=== PATIENT | male | born 1960 | race Caucasian/White ===

== ENCOUNTER 2024-07-02 11:23 | Emergency (ER) | payer OTHER, SELFPAY ==
--- NOTE | 2024-07-02 11:26 | ECG_ITS ---
[facility] Test Date: 2024-07-02 Pat Name: Paulino Guerrero Department: Room: Gender: Male Forms Builder: : 1960 Requested By: Melanie Ivan Order Number: [id number] Stef MD: Lauro Chatman M.D. Measurements Intervals [place] Rate: 64 P: 63 CO: 202 QRS: 42 QRSD: 81 T: 64 QT: 311 QTc: 323 Interpretive Statements SINUS RHYTHM NONSPECIFIC T-WAVE ABNORMALITY No previous ECG available for comparison Electronically Signed On 07-05-2024 19:15:39 CDT by Lauro Chatman M.D. [id number]
[2024-07-02 11:31] VITALS: BP 138/87; PULSE 68; RESP 17; TEMP 36.6; O2SAT 96; BMI 33.5
--- NOTE | 2024-07-02 11:31 | XRR_ITS ---
PROCEDURE INFORMATION: Exam: XR Chest Exam date and time: 07/02/2024 12:05 PM Age: 63 years old Clinical indication: Pain; Angina pectoris; Additional info: Cp TECHNIQUE: Imaging protocol: Radiologic exam of the chest. Views: 1 view. COMPARISON: No relevant prior studies available. FINDINGS: Lungs: Unremarkable. No consolidation. Pleural spaces: Blunting of the left costophrenic angle. Heart/Mediastinum: Unremarkable. No cardiomegaly. Bones/joints: Unremarkable. XR/XR chest 1V portable [id number] IMPRESSION: Blunting of the left costophrenic angle. Could be related to artifact from superimposition, atelectasis, or a small left pleural effusion.
[2024-07-02 11:33] VITALS: BP 134/77; PULSE 62; RESP 14; O2SAT 94
--- NOTE | 2024-07-02 12:07 | W.ED.CHESTPA ---
HPI - Chest Pain General: Chief Complaint: Chest Pain Stated Complaint: chest pain Time Seen by Provider: 07/02/24 11:55 History of Present Illness: 63-year-old male presents to the emergency room with episode of chest pain intermittently this morning. He still has some mild chest discomfort on arrival here is no acute EKG changes no associated nausea vomiting or diarrhea he has not noticed anything exacerbates or relieves it. He does have some associated back pain but he states it is typical of his chronic lower lumbar back pain that has not changed significantly. He has no known history of coronary artery disease arrhythmias or stroke. He has not previously had any angiograms or any kind of cardiac testing in the past Associated symptoms: Deny abdominal pain, dyspnea or fever(s) Related Data Home Medications ?Medication ?Instructions ?Recorded ?Confirmed acetaminophen-caffeine 500 mg-65 2 tab PO Q6H PRN Pain 07/02/24 07/02/24 mg tablet (Excedrin Tension Headache) calcium carbonate (Tums) 300 mg PO TID 07/02/24 07/02/24 famotidine 40 mg tablet (Pepcid) 80 mg PO DAILY 07/02/24 07/02/24 gabapentin 600 mg tablet 600 mg PO TID 07/02/24 07/02/24 tizanidine 4 mg tablet 8 mg PO TID 07/02/24 07/02/24 Previous Rx's ?Medication ?Instructions ?Recorded aspirin 81 mg tablet,delayed 81 mg PO DAILY #30 tabs 07/02/24 release isosorbide mononitrate 30 mg 30 mg PO DAILY #30 tabs 07/02/24 tablet,extended release 24 hr Allergies Allergy/AdvReac Type Severity Reaction Status Date / Time No Known Allergies Allergy Verified 07/02/24 11:33 Review of Systems Const: Denies: fever(s) or chills Card: Reports: chest pain Resp: Denies: dyspnea GI: Denies: abdominal pain : Denies: dysuria, urinary frequency or urinary urgency Musc: Reports: back pain; Denies: neck pain Skin/Breast: Denies: rash Physical Exam Const: COMMON NORMALS: no acute distress GENERAL APPEARANCE: cooperative and comfortable ORIENTATION/CONSCIOUSNESS: Yes awake, Yes oriented to person, Yes oriented to place and Yes oriented to time HENMT: COMMON NORMALS: normocephalic, atraumatic and hearing grossly normal bilaterally HEAD & SCALP: normocephalic and atraumatic Resp: COMMON NORMALS: normal respiratory effort, No retractions, No use of accessory muscles and clear to auscultation bilaterally AUSCULTATION: clear to auscultation bilaterally Cardio: COMMON NORMALS: regular rate, regular rhythm and No murmurs present (Cardio) RATE: regular rate RHYTHM: regular rhythm GI: COMMON NORMALS: Soft to palpation and No hepatosplenomegaly present AUSCULTATION: Yes normoactive bowel sounds PALPATION: Yes Soft to palpation, No Tenderness to palpation present (GI), No Guarding due to palpation present (GI) and Yes No hepatosplenomegaly present Extremity: COMMON NORMALS: normal to inspection, capillary refill normal, no clubbing, cyanosis or edema, no calf tenderness and no pedal edema Neuro: SENSORIUM/ORIENTATION: Yes oriented to person, Yes oriented to place and Yes oriented to time Skin: COMMON NORMALS: no rashes or lesions noted GENERAL SKIN EXAM: no rashes or lesions noted Course Vital Signs: Vital signs: Vital Signs Temperature 97.9 F 07/02/24 11:31 Pulse Rate 63 07/02/24 14:30 Respiratory Rate 16 07/02/24 13:03 Blood Pressure 140/85 07/02/24 14:30 Pulse Oximetry 95 07/02/24 14:30 Oxygen Delivery Me thod Room Air 07/02/24 11:33 MDM - Chest Pain Medical Decision Making EKG shows sinus bradycardia without ST elevation or acute changes. There is a first-degree block. Cardiac enzymes trended negative. Will discharge patient home started on isosorbide mononitrate for blood pressure also started on aspirin daily supportive cares and follow-up with primary care doctor within the week to reevaluate blood pressure. Outpatient Lexiscan sestamibi stress test. Medical Records I reviewed the patient's medical records. Lab Data I reviewed the patient's lab results. 07/02/24 11:58 07/02/24 11:58 Radiology Impressions Chest X-Ray 07/02/24 11:31 IMPRESSION: Blunting of the left costophrenic angle. Could be related to artifact from superimposition, atelectasis, or a small left pleural effusion. Laboratory Results WBC 5.70 10^3/uL (3.29-11.43) 07/02/24 11:58 RBC 4.83 10^6/uL (3.85-5.65) 07/02/24 11:58 Hgb 14.40 g/dL (11.27-16.99) 07/02/24 11:58 Hct 44.2 % (37-53) 07/02/24 11:58 MCV 91.5 fl (82-101) 07/02/24 11:58 MCH 29.8 pg (27-33) 07/02/24 11:58 MCHC 32.6 g/dL (30-55) 07/02/24 11:58 RDW 12.5 % (12.1-15.1) 07/02/24 11:58 Plt Count 222 10^3/cmm (157-399) 07/02/24 11:58 MPV 9.7 fL (7.4-10.4) 07/02/24 11:58 Neut % (Auto) 49.8 % 07/02/24 11:58 Lymph % (Auto) 31.9 % 07/02/24 11:58 [place] % (Auto) 8.2 % 07/02/24 11:58 Eos % (Auto) 8.8 % 07/02/24 11:58 Baso % (Auto) 1.1 % 07/02/24 11:58 Neut # (Auto) 2.84 10^3/uL (1.8-7.7) 07/02/24 11:58 Lymph # (Auto) 1.8 10^3/uL (0.8-4.8) 07/02/24 11:58 [place] # (Auto) 0.5 10^3/uL (0.2-0.9) 07/02/24 11:58 Eos # (Auto) 0.5 10^3/uL (0.0-0.8) 07/02/24 11:58 Baso # (Auto) 0.1 10^3/uL (0.0-0.1) 07/02/24 11:58 Nucleated RBC % (auto) 0 % 07/02/24 11:58 Nucleated RBCs # 0.0 /100WBC 07/02/24 11:58 PT 12.50 SECONDS (12.1-14.9) 07/02/24 11:58 INR 0.88 (0.8-1.2) 07/02/24 11:58 Sodium 138 mmol/L (136-145) 07/02/24 11:58 Potassium 4.5 mmol/L (3.5-5.1) 07/02/24 11:58 Chloride 104 mmol/L (98-107) 07/02/24 11:58 Carbon Dioxide 24 mmol/L (22-29) 07/02/24 11:58 Anion Gap 14.5 (5-19) 07/02/24 11:58 BUN 16 mg/dL (8-23) 07/02/24 11:58 Creatinine 0.9 mg/dL (0.7-1.2) 07/02/24 11:58 GFR Calculation 85.8 mL/min (90-130) L 07/02/24 11:58 Glucose 87 mg/dL (65-115) 07/02/24 11:58 Calculated Osmolality 287 mOsm/kg (285-295) 07/02/24 11:58 Calcium 8.9 mg/dL (8.5-10.5) 07/02/24 11:58 Total Bilirubin 1.1 mg/dL (0.15-1.2) 07/02/24 11:58 AST 20 U/L (0-40) 07/02/24 11:58 ALT 17 U/L (0-41) 07/02/24 11:58 Alkaline Phosphatase 84 U/L (40-130) 07/02/24 11:58 Troponin T Baseline 11 ng/L (0-15) 07/02/24 11:58 Troponin T 120 Minute 8.19 ng/L (0-15) 07/02/24 13:37 Delta Troponin T -2.81 ABS# (0-10) L 07/02/24 13:37 Total Protein 6.7 g/dL (6.6-8.7) 07/02/24 11:58 Albumin 4.4 g/dL (3.5-5.2) 07/02/24 11:58 Globulin 2.3 g/dL (1.3-4.6) 07/02/24 11:58 Lipase 32 U/L (13-60) 07/02/24 11:58 All radiology interpretation(s) finalized by discharge Discharge Plan Discharge Patient Disposition: Home Clinical Impression: Atypical chest pain Condition: Stable Prescriptions: New aspirin 81 mg tablet,delayed release (DR/EC) 81 mg PO DAILY Qty: 30 0RF isosorbide mononitrate 30 mg tablet extended release 24 hr 30 mg PO DAILY Qty: 30 0RF No Action gabapentin 600 mg tablet 600 mg PO TID Excedrin Tension Headache 500-65 mg Tablet 2 tab PO Q6H PRN (Reason: Pain) tizanidine 4 mg tablet 8 mg PO TID famotidine [Pepcid] 40 mg Tablet 80 mg PO DAILY Tums 300 mg (750 mg) Tablet,Chewable 300 mg PO TID Discharge Orders: Discharge ED (Routine); Ordered 07/02/24 Ordered By: Jonathan Eli Referrals: Maya Salcido APN [Primary Care Provider] - Discharge Diet: Usual diet Discharge Activity: Resume usual activity Patient Instructions: Opioid Safety, Pain Management Activity Restrictions/Additional Instructions: Thank you for choosing [facility] for your healthcare needs today. It is very important that you follow up as instructed or that you return to the Emergency Department should you have concerns or if your condition changes or worsens in any way. You were seen in the emergency room for chest discomfort. Your cardiac enzymes and EKG were normal. Recommend that you start taking baby aspirin daily will also start you on isosorbide mononitrate 30 mg daily and we will set you up for an outpatient stress test. Print Language: Yoruba Coding Level of Care Code ED Industrial Maintenance Instructor for Suellen Maguire
[2024-07-02 12:11] LABS: Basophils # 0.1 10^3/uL (0.0-0.1); Basophils % 1.1 %; Eosinophils # 0.5 10^3/uL (0.0-0.8); Eosinophils % 8.8 %; Hematocrit 44.2 % (37-53); Lymphocytes # 1.8 10^3/uL (0.8-4.8); Lymphocytes % 31.9 %; Mean Corpuscular HGB Conc 32.6 g/dL (30-55); Mean Corpuscular Hemoglobin 29.8 pg (27-33); Mean Corpuscular Volume 91.5 fl (82-101); Mean Platelet Volume 9.7 fL (7.4-10.4); Monocytes # 0.5 10^3/uL (0.2-0.9); Monocytes % 8.2 %; Neutrophils # 2.84 10^3/uL (1.8-7.7); Neutrophils % 49.8 %; Nucleated Red Blood Cells % 0 %; Platelet Count 222 10^3/cmm (157-399); Red Blood Count 4.83 10^6/uL (3.85-5.65); Red Cell Distribution Width 12.5 % (12.1-15.1)
[2024-07-02 12:28] LABS: INR 0.88 (0.8-1.2)
[2024-07-02 12:32] LABS: Troponin(5th) Baseline 11 ng/L (0-15)
[2024-07-02 12:33] LABS: Alanine Aminotransferase 17 U/L (0-41); Albumin Level 4.4 g/dL (3.5-5.2); Alkaline Phosphatase 84 U/L (40-130); Anion Gap 14.5 (5-19); Aspartate Amino Transferase 20 U/L (0-40); Blood Urea Nitrogen 16 mg/dL (8-23); Calcium 8.9 mg/dL (8.5-10.5); Carbon Dioxide 24 mmol/L (22-29); Chloride 104 mmol/L (98-107); Creatinine Clr Calc Pharmacy 108.1676; Globulin 2.3 g/dL (1.3-4.6); Glomerular Filtration Rate 85.8 mL/min (90-130); Glucose 87 mg/dL (65-115); Lipase 32 U/L (13-60); Osmolality Calculated 287 mOsm/kg (285-295); Potassium 4.5 mmol/L (3.5-5.1); Sodium 138 mmol/L (136-145); Total Bilirubin 1.1 mg/dL (0.15-1.2); Total Protein 6.7 g/dL (6.6-8.7)
[2024-07-02 13:03] VITALS: BP 142/91; PULSE 60; RESP 16; O2SAT 61
--- NOTE | 2024-07-02 13:18 | ECG_ITS ---
[facility] Date: 2024-[facility]02 Pat Name: Paulino Guerrero Department: Room: Gender: Male Heel Padder: : 1960 Requested By: Melanie Ivan Order Number: [id number] Reading MD: Measurements Intervals [place] Rate: 60 P: 24 NM: 212 QRS: 51 QRSD: 86 T: 75 QT: 366 QTc: 366 Interpretive Statements SINUS RHYTHM WITH FIRST DEGREE AV BLOCK [id number]
[2024-07-02 14:28] LABS: Troponin 5 2HR 8.19 ng/L (0-15)
[2024-07-02 14:30] VITALS: BP 140/85; PULSE 63; O2SAT 95
[2024-07-02 14:31] LABS: Troponin 5 2HR Delta -2.81 ABS# (0-10)
[2024-07-02 15:14] VITALS: BP 159/94; PULSE 61; O2SAT 92
--- NOTE | 2024-07-04 12:09 | DCPLANNER ---
faxed outpatient stress test order to scheduling for er f/u
== END 2024-07-02 15:15 | disposition home or self-care (01) ==
PROVIDERS: Emergency Medicine; Emergency Provider Family Medicine; PCP Nurse Practitioner Family
DX: R07.89 Other chest pain (principal)
CPT/HCPCS: 36415; 71045; 80053; 83690; 84484; 85025; 85610; 93005; 99285

== ENCOUNTER 2025-02-03 10:53 | Outpatient (CLI) | payer OTHER, SELFPAY ==
--- NOTE | 2025-02-03 11:06 | CT_ITS ---
WS: [id number] CT chest w con* [id number] HISTORY: THYMOMA TECHNIQUE: Axial imaging performed through the thorax. Coronal and sagittal reformats are submitted. All CT scans at [facility] use at least one of these dose optimization techniques: automated exposure control; mA and/or kV adjustment per patient size (includes targeted exams where dose is matched to clinical indication); or iterative reconstruction. CONTRAST: Omnipaque 350; 100 mL IV. DLP: 618.02 mGy.cm COMPARISON: 02/21/2017 Lungs and central airway: Lungs are well aerated. Stable subpleural 5 mm noncalcified nodule RIGHT lower lobe. No additional pulmonary nodule. No mass or pneumonia. Pleura: Normal. No pleural effusion. Heart and pericardium: Normal size heart with no pericardial effusion. Mediastinum and gerardo: No mediastinum or hilar adenopathy. No mass in the anterior upper mediastinum. Vessels: Normal size aortic and pulmonary artery. No coronary artery calcifications. Chest wall and lower neck: No soft tissue masses. Upper abdomen: Small hiatal hernia. Negative gallbladder by CT. No adrenal mass. Osseous structures: No destructive process. CT/CT chest w con* [id number] IMPRESSION: 1. Stable 5 mm subpleural nodule RIGHT lower lobe since 2017. 2. No new mass or nodule. No adenopathy. 3. No mass in the anterior superior mediastinum.
[2025-02-03 11:37] LABS: Blood Urea Nitrogen 13 mg/dL (8-23)
[2025-02-03] MEDS: iohexol 350 mg/mL 500 mL Btl (per mL) IV (11:41)
== END 2025-02-03 10:54 | disposition home or self-care (01) ==
LOC: RAD 10:55
PROVIDERS: Radiology Diagnostic Radiology; PCP Nurse Practitioner Family; Visit Provider Psychiatry & Neurology Clinical Neurophysiology
DX: D49.89 Neoplasm of unspecified behavior of other specified sites (principal); R91.8 Other nonspecific abnormal finding of lung field
CPT/HCPCS: 71260; 82565; 84520

== ENCOUNTER 2025-02-05 08:22 | Outpatient (CLI) | payer OTHER, SELFPAY ==
--- NOTE | 2025-02-05 08:31 | MR_ITS ---
WS: [id number] MRI HEAD WITH CONTRAST TECHNIQUE: Sagittal T1, T2 axial, T2 axial FLAIR, axial susceptibility weighted imaging, axial diffusion weighted images, and coronal T2 images were obtained. Pre and post-T1 axial and post T1 coronal images. ADC and FSPGR images. CLINICAL INFORMATION: ACQUIRED PTOSIS OF R EYELID COMPARISON: MRI 2012 FINDINGS: No evidence of restricted diffusion to suggest acute ischemia. Mild small vessel changes. Moderate parenchymal volume loss. Moderate moderate asymmetric volume loss involving the cerebellar hemispheres and vermis slightly progressed since 2012. Normal vascular flow voids at the skull base. No extra-axial fluid collections. No abnormal gadolinium enhancement. Paranasal sinuses and mastoid air cells are well aerated. Normal posterior nasopharynx. Normal dural venous sinuses. Normal optic chiasm. No other acute findings. MR/MR head wo/w con [id number] IMPRESSION: 1. No evidence of restricted diffusion to suggest acute ischemia. 2. Mild small vessel changes with moderate parenchymal volume loss. Small vess el changes progressed since 2012. 3. Moderate asymmetric volume loss involving the cerebellar hemispheres and ve rmis. This is nonspecific but can be seen with chronic Dilantin therapy, alcoho lic encephalopathy, chronic vertebrobasilar insufficiency, and nonspecific cere bellar degeneration. This is slightly progressed since 2012. 4. No hemosiderin on susceptibility-weighted images.
--- NOTE | 2025-02-05 09:05 | MR_ITS ---
WS: [id number] MRA HEAD TECHNIQUE: Axial 3-D TOF images obtained with axial images and axial, sagittal, and coronal 2-D reformatted images. CLINICAL INFORMATION: ptosis RT eye COMPARISON: None. FINDINGS: Distal vertebrals are patent. Somewhat small but patent basilar artery. Anterior dominant circulation. Persistent RIGHT PLUGGER MAN. Normal vascularity to the PLUGGER MAN territory bilaterally. Patent LEFT posterior communicating artery. Both ICAs are patent at the skull base. Normal vascularity to the LUCIANO and MCA territories bilaterally. No evidence of high-grade proximal stenosis. MR/MR angio head wo con [id number] IMPRESSION: 1. Anterior dominant circulation. 2. Otherwise unremarkable intracranial MRA
== END 2025-02-05 08:23 | disposition home or self-care (01) ==
LOC: RAD 08:24
PROVIDERS: PCP Nurse Practitioner Family; Visit Provider Psychiatry & Neurology Clinical Neurophysiology
DX: G31.89 Other specified degenerative diseases of nervous system (principal); I67.82 Cerebral ischemia
CPT/HCPCS: 70544; 70553

== ENCOUNTER → 2025-03-26 11:16 | Outpatient (BNVA) | payer OTHER, SELFPAY | PROVIDERS: PCP Nurse Practitioner Family; Visit Provider Specialist | DX: M12.811 Other specific arthropathies, not elsewhere classified, right shoulder (principal) | CPT/HCPCS: 73030 ==

== ENCOUNTER 2025-04-21 14:12 | Outpatient (CLI) | payer OTHER, MEDICAID, SELFPAY ==
--- NOTE | 2025-04-21 14:30 | MR_ITS ---
WS: [id number] MRI RIGHT SHOULDER HISTORY: right shoulder COMPARISON: Shoulder radiograph 03/26/2025 TECHNIQUE: Multiplanar sequences of the shoulder joint are submitted. Abnormal AC joint. Increased T2 signal throughout the AC joint with mild synovitis. Mild widening of the AC joint to 10 mm. Suspect there is disruption of the superior and inferior acromioclavicular ligaments. Moderate amount of fluid in the subacromial subdeltoid bursa. Moderate subacromial impingement. Normal position of the biceps tendon. No os acromion. No rotator cuff muscle atrophy or edema. Increased fluid signal in the mid to distal supraspinatus tendon consistent with an interstitial tear. There is a focal insertion site tear with additional tendinopathy in the supraspinatus. No retraction of the tendon. Infraspinatus tendon and the subscapularis tendons are intact. No labral tear is identified. Fluid and increased T2 signal in the rotator cuff interval. Interval MR/MR shoulder RT wo con* [id number] IMPRESSION: 1. Mild widening of the AC joint with partial disruption of the superior and i nferior acromioclavicular ligaments. 2. Fluid in the subacromial and subdeltoid bursa. 3. Interstitial tear in the supraspinatus tendon with an additional insertion site tear and tendinopathy.
== END 2025-04-21 14:13 | disposition home or self-care (01) ==
LOC: RAD 14:18
PROVIDERS: PCP Nurse Practitioner Family; Visit Provider Specialist
DX: M12.811 Other specific arthropathies, not elsewhere classified, right shoulder (principal); R93.89 Abnormal findings on diagnostic imaging of other specified body structures; M75.111 Incomplete rotator cuff tear or rupture of right shoulder, not specified as traumatic; M67.813 Other specified disorders of tendon, right shoulder; M25.811 Other specified joint disorders, right shoulder; M65.911 Unspecified synovitis and tenosynovitis, right shoulder
CPT/HCPCS: 73221